=== PATIENT | female | born 1990 | race Caucasian/White ===

== ENCOUNTER → 2016-12-31 | Outpatient (CLI) | payer SELFPAY ==
[2017-01-05 12:39] LABS: QUANTIFERON TB ANTIGEN VALUE 0.13 IU/mL (.); QUANTIFERON TB NIL VALUE 0.08 IU/mL (.)
== END ==
LOC: OD 10:17
PROVIDERS: ATTEND Obstetrics & Gynecology
DX: R76.11 Nonspecific reaction to tuberculin skin test without active tuberculosis (principal)
CPT/HCPCS: 36415; 86480

== ENCOUNTER → 2017-03-16 | Outpatient (CLI) | payer SELFPAY | LOC: RAD 17:18 | PROVIDERS: ATTEND Obstetrics & Gynecology | DX: R82.2 Biliuria (principal); R10.11 Right upper quadrant pain; R10.13 Epigastric pain | CPT/HCPCS: 76705 ==

== ENCOUNTER → 2017-03-17 | Outpatient (CLI) | payer SELFPAY | LOC: RAD 11:47 | PROVIDERS: ATTEND Nurse Practitioner Primary Care | DX: R10.11 Right upper quadrant pain (principal); R10.13 Epigastric pain; R11.10 Vomiting, unspecified; R19.8 Other specified symptoms and signs involving the digestive system and abdomen | CPT/HCPCS: 74160 ==

== ENCOUNTER 2017-05-31 14:04 | Emergency (ER) | payer SELFPAY ==
[2017-05-31] MEDS ORDERED: KETOROLAC TROMETHAMINE INJ/PF 30 MG/1 ML SDV IV ONE (14:28)
[2017-05-31] MEDS ORDERED: OXYCODONE-ACETAMINOPHEN 5-325 MG TABLET PO ONE (14:28)
--- NOTE | 2017-05-31 14:29 | ER Document Report ---
ED Medical Screen (RME) - General Chief Complaint: Headache Stated Complaint: HEAD PAIN Time Seen by Provider: 05/31/17 14:27 Information source: Patient Notes: 27-year-old female with past medical history of migraines when she was . Her child is currently 6 years old. Patient states some intermittent headaches to the right side of her head for the last 3 weeks. She states some intermittent blurry vision. She denies any trauma, fevers, neck stiffness, weakness or numbness to the arms or legs. TRAVEL OUTSIDE OF THE [place] IN LAST 30 DAYS: No - Related Data Allergies/Adverse Reactions: codeine [Codeine] Allergy (Severe, Verified 05/31/17 14:07) Apnea ranitidine HCl [From Zantac] Allergy (Severe, Verified 05/31/17 14:07) sulfamethoxazole [From Septra] Allergy (Severe, Verified 05/31/17 14:07) trimethoprim [From Septra] Allergy (Severe, Verified 05/31/17 14:07) Past Medical History Renal/ Medical History: Denies: Hx Peritoneal Dialysis Psychiatric Medical History: Reports: Hx Anxiety Past Surgical History: Reports: Hx Section - x2, Hx Orthopedic Surgery - knee, ankle, foot - Immunizations Hx Diphtheria, Pertussis, Tetanus Vaccination: Yes Physical Exam - Vital signs Vitals: Temp Pulse Resp BP Pulse Ox 99.6 F 104 H 16 121/80 97 05/31/17 14:07 05/31/17 14:07 05/31/17 14:07 05/31/17 14:07 05/31/17 14:07 Course - Vital Signs Vital signs: Temp Pulse Resp BP Pulse Ox 99.6 F 104 H 16 121/80 97 05/31/17 14:07 05/31/17 14:07 05/31/17 14:07 05/31/17 14:07 05/31/17 14:07
--- NOTE | 2017-05-31 15:24 | RADIOLOGY REPORT (SQ) ---
EXAM DESCRIPTION: CT HEAD WITHOUT COMPLETED DATE/TIME: 05/31/2017 3:13 pm REASON FOR STUDY: pit; right sided intermittent headache COMPARISON: None. TECHNIQUE: Axial images acquired through the brain without intravenous contrast. Images reviewed wi th bone, brain and subdural windows. Images stored on PACS. All CT scanners at this facility use dose modulation, iterative reconstruction, and/or weight based d osing when appropriate to reduce radiation dose to as low as reasonably achievable (ALARA). [facility]: Dose Right [facility]: CareDose [facility]: Dose Right [facility]: Teradose 4D [facility]: [employer] RADIATION DOSE: Up-to-date CT equipment and radiation dose reduction techniques were employed. CTDIv ol: 64.6 mGy. DLP: 1034 mGy-cm. mGy. LIMITATIONS: None. FINDINGS: VENTRICLES: Normal size and contour. CEREBRUM: No masses. No hemorrhage. No midline shift. Normal alberts/white matter differentiation. N o evidence for acute infarction. CEREBELLUM: No masses. No hemorrhage. No alteration of density. No evidence for acute infarction. EXTRAAXIAL SPACES: No fluid collections. No masses. ORBITS AND GLOBE: No intra- or extraconal masses. Normal contour of globe without masses. CALVARIUM: No fracture. PARANASAL SINUSES: No fluid or mucosal thickening. SOFT TISSUES: No mass or hematoma. OTHER: No other significant finding. IMPRESSION: NORMAL BRAIN CT WITHOUT CONTRAST. TECHNICAL DOCUMENTATION: JOB ID: [id number] Quality ID # [id number]: Final reports with documentation of one or more dose reduction techniques (e.g., Au tomated exposure control, adjustment of the mA and/or kV according to patient size, use of iterative reconstruction technique) 2010 [employer]- All Rights Reserved
[2017-05-31] MEDS ORDERED: NORMAL SALINE 1000 ML 1,000 ML IV ONE (15:40)
[2017-05-31] MEDS ORDERED: PROCHLORPERAZINE EDISYLATE INJ 10 MG/2 ML VIAL IV ONE (15:40)
--- NOTE | 2017-05-31 15:40 | ER Document Report ---
ED Headache - General Chief Complaint: Headache Stated Complaint: HEAD PAIN Time Seen by Provider: 05/31/17 14:27 Mode of Arrival: Ambulatory Information source: Patient Notes: Patient is a 27-year-old female who presents to the ER today for headache 2 days. Patient does have a history of migraines. She does admit to light sensitivity, nausea with this migraine. She denies any weakness or numbness anywhere. She states The worst migraines that she has had Was when she was . TRAVEL OUTSIDE OF THE [place] IN LAST 30 DAYS: No - Related Data Allergies/Adverse Reactions: codeine [Codeine] Allergy (Severe, Verified 05/31/17 14:07) Apnea ranitidine HCl [From Zantac] Allergy (Severe, Verified 05/31/17 14:07) sulfamethoxazole [From Septra] Allergy (Severe, Verified 05/31/17 14:07) trimethoprim [From Septra] Allergy (Severe, Verified 05/31/17 14:07) Past Medical History - General Information source: Patient - Social History Smoking Status: Unknown if Ever Smoked Family History: Reviewed & Not Pertinent Patient has suicidal ideation: No Patient has homicidal ideation: No Renal/ Medical History: Denies: Hx Peritoneal Dialysis Psychiatric Medical History: Reports: Hx Anxiety Past Surgical History: Reports: Hx Section - x2, Hx Orthopedic Surgery - knee, ankle, foot - Immunizations Hx Diphtheria, Pertussis, Tetanus Vaccination: Yes Review of Systems - Review of Systems Constitutional: No symptoms reported EENT: No symptoms reported Cardiovascular: No symptoms reported Respiratory: No symptoms reported Gastrointestinal: No symptoms reported Genitourinary: No symptoms reported Female Genitourinary: No symptoms reported Musculoskeletal: No symptoms reported Skin: No symptoms reported Hematologic/Lymphatic: No symptoms reported Neurological/Psychological: See HPI Physical Exam - Vital signs Vitals: Temp Pulse Resp BP Pulse Ox 99.6 F 104 H 16 121/80 97 05/31/17 14:07 05/31/17 14:07 05/31/17 14:07 05/31/17 14:07 05/31/17 14:07 - Notes Notes: PHYSICAL EXAMINATION: GENERAL: Laying in a dark room with sunglasses on, obviously uncomfortable, but in no acute distress. HEAD: Atraumatic, normocephalic. EYES: light-sensitive, Pupils equal round and reactive to light, extraocular movements intact, sclera anicteric, conjunctiva are normal. ENT: ear canals without erythema or foreign body, TMs pearly ernst with good bony landmarks, nares patent, oropharynx clear without exudates. Moist mucous membranes. NECK: Normal range of motion, supple without lymphadenopathy LUNGS: CTAB and equal. No wheezes rales or rhonchi. HEART: Regular rate and rhythm without murmurs ABDOMEN: Soft, no tenderness. No guarding, no rebound BACK: no vertebral tenderness, normal ROM GI/: no CVA tenderness EXTREMITIES: Normal range of motion, no pitting edema. No cyanosis. NEUROLOGICAL: Cranial nerves grossly intact. Normal sensory/motor exams. PSYCH: Normal mood, normal affect. SKIN: Warm, Dry, normal turgor, no rashes or lesions noted Course - Re-evaluation Re-evalutation: 05/31/17 17:25 Patient feels better after Compazine, IV fluids, Toradol eating Pope[employer] chicken and would like to go home. - Vital Signs Vital signs: Temp Pulse Resp BP Pulse Ox 99.6 F 104 H 16 121/80 97 05/31/17 14:07 05/31/17 14:07 05/31/17 14:07 05/31/17 14:07 05/31/17 14:07 Discharge - Discharge Clinical Impression: Migraine Qualifiers: Migraine type: unspecified Status migrainosus presence: without status migrainosus Intractability: not intractable Qualified Code(s): G43.909 - Migraine, unspecified, not intractable, without status migrainosus Condition: Stable Disposition: HOME, SELF-CARE Instructions: Intravenous Compazine for Headaches ([facility]), Use of Diphenhydramine Additional Instructions: Return immediately for any new or worsening symptoms. Follow up with primary care provider, call tomorrow to make followup appointment. Prescriptions: Ibuprofen [Motrin 800 mg Tablet] 800 mg PO Q8H PRN #30 tab PRN Reason: Forms: Return to Work
[2017-05-31 17:52] VITALS: BP 101/59
== END 2017-05-31 17:45 | disposition home or self-care (01) ==
LOC: ER 14:04
DX: G43.909 Migraine, unspecified, not intractable, without status migrainosus (principal); H53.149 Visual discomfort, unspecified; R11.0 Nausea; Z88.5 Allergy status to narcotic agent; Z88.8 Allergy status to other drugs, medicaments and biological substances; Z88.1 Allergy status to other antibiotic agents
CPT/HCPCS: 99284; 96374; 96375; 81025; 70450; J1885; J0780; J7030

== ENCOUNTER → 2017-06-08 | Outpatient (CLI) | payer SELFPAY ==
--- NOTE | 2017-06-08 11:06 | RADIOLOGY REPORT (SQ) ---
EXAM DESCRIPTION: C SP 4 OR 5 VIEWS COMPLETED DATE/TIME: 06/08/2017 10:20 am REASON FOR STUDY: HEADACHE, CERVICAL PAIN R51 HEADACHE M54.2 CERVICALGIA COMPARISON: None. NUMBER OF VIEWS: Five views. TECHNIQUE: AP, lateral, obliques and odontoid radiographic images acquired of the cervical spine. LIMITATIONS: None. FINDINGS: MINERALIZATION: Normal. ALIGNMENT: Anatomic. VERTEBRAE: Vertebral bodies of normal height. DISCS: No significant osteophytes or sclerosis. Disc height maintained. FORAMINA: No osteophytes or foraminal narrowing. LATERAL AND POSTERIOR ELEMENTS: Facets, lateral masses and spinous processes without significant find ings. HARDWARE: None in the spine. SOFT TISSUES: No masses or calcifications. Lung apices clear. OTHER: No other significant finding. IMPRESSION: NO SIGNIFICANT RADIOGRAPHIC FINDING IN THE CERVICAL SPINE. TECHNICAL DOCUMENTATION: JOB ID: [id number] [employer]- All Rights Reserved
== END ==
LOC: OD 10:05
PROVIDERS: ATTEND Obstetrics & Gynecology
DX: R51 Headache (principal); M54.2 Cervicalgia
CPT/HCPCS: 72050

== ENCOUNTER 2018-02-10 18:28 | Emergency (ER) | payer SELFPAY ==
[2018-02-10] MEDS ORDERED: DIPH/PERTUSS(ACELL)/TETANUS VAC/PF 0.5 ML SYR (>=10YO) IM ONE (18:54)
[2018-02-10] MEDS ORDERED: LIDOCAINE 1% INJ-PF (10 MG/ML) 30 ML SDV INJ ONE (18:54)
--- NOTE | 2018-02-10 19:00 | ER Document Report ---
HPI - HPI Pain Level: 2 Notes: Patient is a 28-year-old female with no significant past medical history presents to the ED complaining of a laceration to her right wrist by accident prior to arrival. Patient states that she was using a sample box maker and was trying to cut open the straps when she caught her wrist. Patient states that she does have the bleeding under control. She still able to move her hands and fingers without difficulties. Patient states that she just has a burning sensation, but nothing else. She denies any IV drug use. Denies any suicidal or homicidal ideations/thoughts. No other concerns or complaints at this time. Denies any headache, fever, neck pain, URI, sore throat, chest pain, palpitations, syncope, cough, shortness of breath, wheeze, dyspnea, abdominal pain, nausea/vomiting/diarrhea, urinary retention, dysuria, hematuria, numbness/ tingling, muscle paralysis/weakness, or rash. - ROS Systems Reviewed and Negative: Yes All other systems reviewed and negative - REPRODUCTIVE Reproductive: DENIES: : Past Medical History - Social History Smoking Status: Unknown if Ever Smoked Family History: Reviewed & Not Pertinent Neurological Medical History: Reports: Hx Migraine Renal/ Medical History: Denies: Hx Peritoneal Dialysis Psychiatric Medical History: Reports: Hx Anxiety Past Surgical History: Reports: Hx Section - x2, Hx Orthopedic Surgery - knee, ankle, foot - Immunizations Hx Diphtheria, Pertussis, Tetanus Vaccination: Yes Vertical Provider Document - CONSTITUTIONAL Agree With Documented VS: Yes Notes: PHYSICAL EXAMINATION: GENERAL: Well-appearing, well-nourished and in no acute distress. A&Ox4. LUNGS: Breath sounds clear to auscultation bilaterally and equal. No wheezes rales or rhonchi. HEART: Regular rate and rhythm without murmurs, rubs, gallops. Musculoskeletal: Rt wrist/hand: FROM to passive/active. Strength 5+/5. N/V intact distal. No bony tenderness. Extremities: No cyanosis, clubbing, or edema b/l. Peripheral pulses 2+. Capillary refill less than 3 seconds. NEUROLOGICAL: Cranial nerves grossly intact. Normal speech, normal gait. Normal sensory, motor exams PSYCH: Normal mood, normal affect. SKIN:Rt anterior wrist: superficial, clean, linear, 2cm laceration with 0.5cm width. No active bleeding. - INFECTION CONTROL TRAVEL OUTSIDE OF THE [place] IN LAST 30 DAYS: No Course - Re-evaluation Re-evalutation: 02/10/18 19:37 Patient is an afebrile, well-hydrated, 28-year-old female who presents to the ED with a right wrist laceration. Vitals are acceptable. PE is otherwise unremarkable for any neurovascular compromise, obvious tendon/ligament rupture, obvious fracture/dislocation. Wound was thoroughly irrigated and cleansed. Wound edges were approximated appropriately utilizing 4 simple interrupted sutures. Wound dressing was placed and wound instructions reviewed. Tdap was given today. Recommend conservative measures otherwise for symptoms. Recheck with your PCM in 2-3 days. Return to the ED with any worsening/concerning symptoms otherwise as reviewed discharge. Sutures will need removed in about 10 days. Patient is in agreement. - Vital Signs Vital signs: Temp Pulse Resp BP Pulse Ox 98.6 F 106 H 137/81 H 98 02/10/18 18:35 02/10/18 18:35 02/10/18 18:35 02/10/18 18:35 Procedures - Laceration/Wound Repair Right Wrist Time completed: 19:35 Wound length (cm): 2 Wound's Depth, Shape: Superficial, Linear Laceration pre-procedure: Sterile PPE donned, Sterile drapes applied, Other - chlorhexadine Anesthetic type: 1% Lidocaine Volume Anesthetic (mLs): 4 Wound explored: Clean, No foreign body removed Irrigated w/ Saline (mLs): 80 Wound Debrided: none Wound Repaired With: Sutures Suture Size/Type: 4:0, Nylon Number of Sutures: 4 Layer Closure?: No Post-procedure wound care: Sterile dressing applied Post-procedure NV exam normal: Yes Complications: No Discharge - Discharge Clinical Impression: Laceration of wrist Qualifiers: Encounter type: initial encounter Laterality: right Qualified Code(s): S61.511A - Laceration without foreign body of right wrist, initial encounter Condition: Stable Disposition: HOME, SELF-CARE Instructions: Antibiotic Ointment Protection ([facility]), Laceration Care ([facility]), Soap Cleansing ([facility]), Tetanus Immunization Given ([facility]) Additional Instructions: Do not shower or bathe for 24 hours. After 24 hours you may shower but no submersion of the wound under water. Keep the original dressing on the wound for 24 hours unless the drainage soaks through. Change the dressing daily thereafter and keep the knots of the suture material clean from any dried discharge. You may leave the wound open to the air once there is no more discharge. Return to the ED and/or your PCM in 2-3 days for a recheck. Monitor for any signs of worsening pain or redness, purulent drainage, streaks, and/or fever. Return to the ED if noticing any of the above symptoms or as needed. Your sutures will need to be removed in 10 days. Forms: Elevated Blood Pressure Referrals: [facility] [Provider Group] - Follow up as needed [facility] [Provider Group] - Follow up as needed
[2018-02-10 19:57] VITALS: BP 136/80
== END 2018-02-10 19:55 | disposition home or self-care (01) ==
LOC: ER 18:28
PROC: 0HQDXZZ Repair Right Lower Arm Skin, External Approach (ICD-10-PCS; principal; 2018-02-10)
DX: S61.511A Laceration without foreign body of right wrist, initial encounter (principal); W26.0XXA Contact with knife, initial encounter
CPT/HCPCS: 99282; 90471; 90715; 12001; J3490

== ENCOUNTER 2018-05-01 17:08 | Emergency (ER) | payer SELFPAY ==
[2018-05-01 17:29] VITALS: BP 125/78
--- NOTE | 2018-05-01 17:36 | ER Document Report ---
HPI - HPI Pain Level: 3 Notes: Patient is a 28-year-old female who presents to the ED complaining of nasal congestion/discharge, dry nonproductive cough, fever, body ache 3 days. Patient states that she is still eating and drinking without difficulties, but does have a decreased p.o. intake. She is still urinating normally having normal bowel movements. Patient has been using some [id number] meds for symptoms. She denies any significant past medical history including cardiopulmonary history and immunocompromised conditions. Patient denies IV drug use. + smoker. Denies any headache, neck pain, sore throat, chest pain, palpitations, syncope, shortness of breath, wheeze, dyspnea, abdominal pain, nausea/vomiting/diarrhea, urinary retention, dysuria, hematuria, or rash. - ROS Systems Reviewed and Negative: Yes All other systems reviewed and negative - REPRODUCTIVE Reproductive: DENIES: : Past Medical History - Social History Smoking Status: Current Every Day Smoker Family History: Reviewed & Not Pertinent - Past Medical History Cardiac Medical History: Reports: Hx Hypertension Neurological Medical History: Reports: Hx Migraine Renal/ Medical History: Denies: Hx Peritoneal Dialysis Psychiatric Medical History: Reports: Hx Anxiety, Hx Depression Past Surgical History: Reports: Hx Section - x2, Hx Orthopedic Surgery - knee, ankle, foot - Immunizations Hx Diphtheria, Pertussis, Tetanus Vaccination: Yes Vertical Provider Document - CONSTITUTIONAL Agree With Documented VS: Yes Notes: PHYSICAL EXAMINATION: GENERAL: Well-appearing, well-nourished and in no acute distress. A&Ox4. Answers questions appropriately. Moves comfortably w/o notable distress HEAD: Atraumatic, normocephalic. EYES: Pupils equal round and reactive to light, extraocular movements intact, sclera anicteric, conjunctiva are normal. ENT: EAC clear b/l. TM's intact b/l without erythema, fluid, or perforation. Nares patent and with clear discharge. oropharynx no erythema without exudates. No tonsilar hypertrophy without erythema or exudate. No palatine shift. Uvula midline. No tongue protrusion. No drooling, hoarseness, or airway compromise. Moist mucous membranes. No sinus tenderness. NECK: Normal range of motion, supple without lymphadenopathy. No rigidity/ meningismus. LUNGS: Breath sounds clear to auscultation bilaterally and equal. No wheezes rales or rhonchi. No retractions HEART: Regular rate and rhythm without murmurs, rubs, gallops. ABDOMEN: Soft, nontender, nondistended abdomen. No guarding, no rebound. No masses appreciated. Normal bowel sounds present. No CVA tenderness bilaterally. No hepatosplenomegaly. NEUROLOGICAL: Normal speech, normal gait. Normal sensory, motor exams PSYCH: Normal mood, normal affect. SKIN: Warm, Dry, normal turgor, no rashes or lesions noted. - INFECTION CONTROL TRAVEL OUTSIDE OF THE [place] IN LAST 30 DAYS: No Course - Re-evaluation Re-evalutation: 05/01/18 17:33 Patient is an afebrile, well-hydrated, 28-year-old female who presents to the ED with acute URI, suspect viral. Vitals are stable. PE is otherwise unremarkable. No labs or imaging warranted at this time based on H&P. Patient has no significant cardiopulmonary or immunocompromised medical conditions. Pt is non-toxic appearing. Patient's lungs are clear to auscultation bilaterally without tachycardia, hypoxia, or tachypnea. Patient is tolerating p.o. without any difficulties. Low suspicion for any meningitis, sepsis, peritonsillar/ pharyngeal abscess, respiratory compromise, severe dehydration, or other emergent systemic condition at this time. Patient is aware this condition can change from initial presentation and she needs to monitor symptoms closely. Rx for tessalon. Conservative measures otherwise for symptoms. Recheck with your PCM in 3-5 days. Return to the ED with any worsening/concerning symptoms otherwise as reviewed in discharge. Patient is in agreement. - Vital Signs Vital signs: Temp Pulse Resp BP Pulse Ox 99.7 F 96 16 125/78 97 05/01/18 17:27 05/01/18 17:27 05/01/18 17:27 05/01/18 17:27 05/01/18 17:27 Discharge - Discharge Clinical Impression: Acute URI Condition: Stable Disposition: HOME, SELF-CARE Instructions: Upper Respiratory Illness ([facility]) Additional Instructions: Maintain adequate fluid intake Take meds as directed tylenol/ibuprofen as needed over the counter cold medication as needed for symptoms Humidified air may help Wash your hands regularly Wear a mask when coughing F/u: with your PCM in 3-5 days for a recheck Return to the ED with any fever, worsening pain, chest pain, palpitations, syncope, worsening KONG, neck pain/stiffness, shortness of breath, wheezing, drooling, trouble swallowing/breathing, abdominal pain, n/v/d, rash, or worsening/concerning symptoms otherwise. Prescriptions: Benzonatate [Tessalon Perle 100 mg Capsule] 100 mg PO Q8HP PRN #15 cap PRN Reason: Forms: Smoking Cessation Education Referrals: SAMUEL MORENO V[employer] OPERATOR [Primary Care Provider] - Follow up in 3-5 days
== END 2018-05-01 17:45 | disposition home or self-care (01) ==
LOC: ER 17:08
DX: J06.9 Acute upper respiratory infection, unspecified (principal); R09.81 Nasal congestion; R05 Cough; R50.9 Fever, unspecified; R52 Pain, unspecified; I10 Essential (primary) hypertension; F17.200 Nicotine dependence, unspecified, uncomplicated
CPT/HCPCS: 99283

== ENCOUNTER 2019-05-14 14:01 | Emergency (ER) | payer SELFPAY ==
[2019-05-14] MEDS ORDERED: LIDOCAINE 1% INJ-PF (10 MG/ML) 30 ML SDV INJ ONE (14:56)
--- NOTE | 2019-05-14 14:58 | ER Document Report ---
HPI - HPI Patient complains to provider of: hand laceration Time Seen by Provider: 05/14/19 14:54 Onset: Just prior to arrival Onset/Duration: Persistent Quality of pain: Other - sore Pain Level: 2 Context: Patient presents emergency department with laceration to right dorsal hand. 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 She tried to apply butterfly bandage and duct tape but it did not work. Patient is left-hand dominant reports that she received a tetanus last year. 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 Lives with: Family Family History: Reviewed & Not Pertinent Patient has suicidal ideation: No Patient has homicidal ideation: No - Past Medical History Cardiac Medical History: Reports: Hx Hypertension Neurological Medical History: Reports: Hx Migraine Renal/ Medical History: Denies: Hx Peritoneal Dialysis Psychiatric Medical History: Reports: Hx Anxiety, Hx Depression Past Surgical History: Reports: Hx Section - x2, Hx Orthopedic Surgery - knee, ankle, foot - Immunizations Hx Diphtheria, Pertussis, Tetanus Vaccination: Yes Vertical Provider Document - CONSTITUTIONAL Agree With Documented VS: Yes Exam Limitations: No Limitations General Appearance: WD/WN, No Apparent Distress - INFECTION CONTROL TRAVEL OUTSIDE OF THE [place] IN LAST 30 DAYS: No - HEENT HEENT: Atraumatic, Normocephalic - NECK Neck: Supple - RESPIRATORY Respiratory: No Respiratory Distress - CARDIOVASCULAR Cardiovascular: Regular Rate - MUSCULOSKELETAL/EXTREMETIES Musculoskeletal/Extremeties: MAEW, FROM, Tender - NEURO Level of Consciousness: Awake, Alert, Appropriate Motor/Sensory: No Motor Deficit - DERM Integumentary: Warm, Dry, Laceration Adult Front & Back Diagram: 1 - Small 1 cm laceration noted to dorsal right hand. No active bleeding, closed with 2 sutures. Site is well approximated now Course - Vital Signs Vital signs: Temp Pulse Resp BP Pulse Ox 98.7 F 83 16 115/63 98 05/14/19 14:24 05/14/19 14:24 05/14/19 14:24 05/14/19 14:24 05/14/19 14:24 Procedures - Laceration/Wound Repair Left Hand Wound length (cm): 1 Wound's Depth, Shape: Superficial Anesthetic type: 1% Lidocaine Volume Anesthetic (mLs): 2 Wound explored: Clean Suture Size/Type: 4:0, Prolene Number of Sutures: 2 Layer Closure?: No Post-procedure NV exam normal: Yes Complications: No Hands back picture: 1 - 1 cm laceration closed with 2 sutures Discharge - Discharge Clinical Impression: Laceration of right hand Qualifiers: Encounter type: initial encounter Foreign body presence: without foreign body Qualified Code(s): S61.411A - Laceration without foreign body of right hand, initial encounter Condition: Stable Disposition: HOME, SELF-CARE Instructions: Laceration Care ([facility]), Soap Cleansing ([facility]) Additional Instructions: *You have been treated for laceration *Monitor the site for signs of infection such as pain,redness, swelling, warmth *keep your hand clean *Follow up here for suture removal in 10 days *Return to ED for signs of infection, worsening condition, changes, needs Referrals: SAMUEL MORENO NP [Primary Care Provider] - Follow up in 1 week
[2019-05-14 15:56] VITALS: BP 118/61
== END 2019-05-14 15:55 | disposition home or self-care (01) ==
LOC: ER 14:01
DX: S61.411A Laceration without foreign body of right hand, initial encounter (principal); W27.8XXA Contact with other nonpowered hand tool, initial encounter; I10 Essential (primary) hypertension
CPT/HCPCS: 99282; 12001; J3490

== ENCOUNTER 2020-08-21 13:20 | Emergency (ER) | payer SELFPAY ==
[2020-08-21] MEDS ORDERED: NORMAL SALINE 1000 ML 1,000 ML IV ONE (13:34)
[2020-08-21] MEDS ORDERED: ONDANSETRON 4 MG TAB.RAPDIS PO ONE (13:34)
--- NOTE | 2020-08-21 13:35 | ER Document Report ---
ED Medical Screen (RME) - General Chief Complaint: Nausea/Vomiting Stated Complaint: NAUSEA,VOMITING,SHAKY Time Seen by Provider: 08/21/20 13:28 Primary Care Provider: SAMUEL MORENO NP [Primary Care Provider] - Follow up as needed Mode of Arrival: Ambulatory Information source: Patient Notes: 30-year-old female presented to ED for complaint of nausea and vomiting shaking palpitations at work. She states she went to work at 1030 x 1230 she started getting sick nausea and vomiting. She states she was very overheated at work and they sent her home. She came here to the emergency room. She does have tachycardia palpitations nausea and vomiting. She states she does smoke a pack a day does not drink or do any kind of illicit drugs. I have ordered blood urin e EKG and IV fluids as well as Zofran. She will be seen by another provider. I have greeted and performed a rapid initial assessment of this patient. A comprehensive ED assessment and evaluation of the patient, analysis of test results and completion of medical decision making process will be conducted by an additional ED providers. TRAVEL OUTSIDE OF THE [place] IN LAST 30 DAYS: No - Related Data Allergies/Adverse Reactions: codeine [Codeine] Allergy (Severe, Verified 05/14/19 14:14) Apnea ranitidine HCl [From Zantac] Allergy (Severe, Verified 05/14/19 14:14) sulfamethoxazole [From Septra] Allergy (Severe, Verified 05/14/19 14:14) trimethoprim [From Septra] Allergy (Severe, Verified 05/14/19 14:14) Past Medical History - Past Medical History Cardiac Medical History: Reports: Hx Hypertension Neurological Medical History: Reports: Hx Migraine Renal/ Medical History: Denies: Hx Peritoneal Dialysis Psychiatric Medical History: Reports: Hx Anxiety, Hx Depression Past Surgical History: Reports: Hx Section - x2, Hx Orthopedic Surgery - knee, ankle, foot - Immunizations Hx Diphtheria, Pertussis, Tetanus Vaccination: Yes Physical Exam - Vital signs Vitals: Temp Pulse Resp BP Pulse Ox 98.6 F 133 H 16 138/80 H 96 08/21/20 13:28 08/21/20 13:28 08/21/20 13:28 08/21/20 13:28 08/21/20 13:28 Course - Vital Signs Vital signs: Temp Pulse Resp BP Pulse Ox 98.6 F 133 H 16 138/80 H 96 08/21/20 13:28 08/21/20 13:28 08/21/20 13:28 08/21/20 13:28 08/21/20 13:28 Doctor's Discharge - Discharge Referrals: SAMUEL MORENO NP [Primary Care Provider] - Follow up as needed
[2020-08-21 14:26] LABS: ABSOLUTE BASOPHILS # (AUTO) 0.1 10^3/uL (0.0-0.2); ABSOLUTE EOSINOPHILS # (AUTO) 0.4 10^3/uL (0.0-0.6); ABSOLUTE LYMPHOCYTES (AUTO) 2.9 10^3/uL (0.5-4.7); ABSOLUTE MONOCYTES (AUTO) 0.5 10^3/uL (0.1-1.4); ABSOLUTE NEUT (AUTO) 6.1 10^3/uL (1.7-8.2); EOSINOPHILS % (AUTO) 4.1 % (0-6); HEMATOCRIT 43.9 % (36.0-47.0); HEMOGLOBIN 15.4 g/dL (12.0-15.5); LYMPHOCYTES % (AUTO) 28.7 % (13-45); MEAN CORPUSCULAR HEMOGLOBIN 31.2 pg (27.0-33.4); MEAN CORPUSCULAR HGB CONC 35.2 g/dL (32.0-36.0); MEAN CORPUSCULAR VOLUME 89 fl (80-97); MONOCYTES % (AUTO) 5.1 % (3-13); PLATELET COUNT 264 10^3/uL (150-450); RED BLOOD COUNT 4.95 10^6/uL (3.72-5.28); RED CELL DISTRIBUTION WIDTH 14.2 % (11.5-14.0); SEGMENTED NEUTROPHILS % (AUTO) 61.1 % (42-78); TOTAL CELLS COUNTED % (AUTO) 100 %; WHITE BLOOD COUNT 9.9 10^3/uL (4.0-10.5)
--- NOTE | 2020-08-21 14:36 | RADIOLOGY REPORT (SQ) ---
EXAM DESCRIPTION: CHEST SINGLE VIEW IMAGES COMPLETED DATE/TIME: 08/21/2020 2:23 pm REASON FOR STUDY: palpitations COMPARISON: 09/27/2013. EXAM PARAMETERS: NUMBER OF VIEWS: One view. TECHNIQUE: Single frontal radiographic view of the chest acquired. RADIATION DOSE: NA LIMITATIONS: None. FINDINGS: LUNGS AND PLEURA: No opacities, masses or pneumothorax. No pleural effusion. MEDIASTINUM AND HILAR STRUCTURES: No masses. Contour normal. HEART AND VASCULAR STRUCTURES: Heart normal in size. Normal vasculature. BONES: No acute findings. HARDWARE: None in the chest. OTHER: No other significant finding. IMPRESSION: NO ACUTE RADIOGRAPHIC FINDING IN THE CHEST. TECHNICAL DOCUMENTATION: JOB ID: [id number] 2010 [employer]- All Rights Reserved Reading location - IP/workstation name: [email or web address]
[2020-08-21 14:43] LABS: ALBUMIN 4.4 g/dL (3.5-5.0); ALKALINE PHOSPHATASE 106 U/L (38-126); ANION GAP 10 (5-19); ASPARTATE AMINO TRANSFERASE 49 U/L (14-36); BILIRUBIN,DIRECT 0.3 mg/dL (0.0-0.4); BILIRUBIN,TOTAL 1.2 mg/dL (0.2-1.3); BLOOD UREA NITROGEN 10 mg/dL (7-20); CALCIUM 9.9 mg/dL (8.4-10.2); CARBON DIOXIDE 23 mmol/L (22-30); CHLORIDE 105 mmol/L (98-107); GLUCOSE 87 mg/dL (75-110); POTASSIUM 4.1 mmol/L (3.6-5.0); TOTAL PROTEIN 7.4 g/dL (6.3-8.2)
--- NOTE | 2020-08-21 14:45 | ER Document Report ---
ED General - General Chief Complaint: Palpitations Stated Complaint: NAUSEA,VOMITING,SHAKY Time Seen by Provider: 08/21/20 13:28 Primary Care Provider: SAMUEL MORENO NP [Primary Care Provider] - Follow up as needed Mode of Arrival: Ambulatory Notes: Patient is a 30-year-old white female with no reported past medical history who presents to the emergency department with a chief complaint of "heat exhaustion". The patient reports that she just started a new job working in a very hot environment on [employer]. She states that she wears full covered clothing and a mask while at work. She states today while working she began to feel as if she was overheating. States that her skin became very warm and then she felt very flushed. She states that she felt like she was not exchanging air well under her mask and started to feel nauseous. She went outside to get some fresh air took off the mask and vomited a couple times. She states she felt as if she was dehydrated and overheated which prompted her visit to the emergency department. She denies any chest pain or palpitations. Denies any shortness of breath. Denies any lower extremity pain or swelling. No abdominal pain. No diarrhea. No fever or recent travel or known sick contacts. She does admit to a history of anxiety and attributes this to some of her symptoms as well. TRAVEL OUTSIDE OF THE [place] IN LAST 30 DAYS: No - Related Data Allergies/Adverse Reactions: codeine [Codeine] Allergy (Severe, Verified 08/21/20 14:10) Apnea ranitidine HCl [From Zantac] Allergy (Severe, Verified 08/21/20 14:10) sulfamethoxazole [From Septra] Allergy (Severe, Verified 08/21/20 14:10) trimethoprim [From Septra] Allergy (Severe, Verified 08/21/20 14:10) Home Medications: Lexapro, Abilify, Doxapin, Ambien, Clonazepam Past Medical History - General Information source: Patient - Social History Smoking Status: Current Every Day Smoker Family History: Reviewed & Not Pertinent - Past Medical History Cardiac Medical History: Reports: Hx Hypertension Neurological Medical History: Reports: Hx Migraine Renal/ Medical History: Denies: Hx Peritoneal Dialysis Psychiatric Medical History: Reports: Hx Anxiety, Hx Depression Past Surgical History: Reports: Hx Section - x2, Hx Orthopedic Surgery - knee, ankle, foot - Immunizations Hx Diphtheria, Pertussis, Tetanus Vaccination: Yes Review of Systems - Review of Systems Constitutional: denies: Fever EENT: denies: Eye pain Cardiovascular: denies: Dyspnea Respiratory: denies: Cough Gastrointestinal: denies: Constipation Genitourinary: denies: Burning Female Genitourinary: denies: Vaginal discharge Musculoskeletal: denies: Deformity Skin: denies: Change in color Hematologic/Lymphatic: denies: Easy bruising Neurological/Psychological: denies: Gait changes Physical Exam - Vital signs Vitals: Temp Pulse Resp BP Pulse Ox 98.6 F 133 H 16 138/80 H 96 08/21/20 13:28 08/21/20 13:28 08/21/20 13:28 08/21/20 13:28 08/21/20 13:28 - General General appearance: Appears well, Alert In distress: None - HEENT Head: Normocephalic, Atraumatic Eyes: Normal Conjunctiva: Normal Extraocular movements intact: Yes Eyelashes: Normal Pupils: PERRL Ears: Normal External canal: Normal Tympanic membrane: Normal Nasal: Normal Mouth/Lips: Normal Mucous membranes: Dry Pharynx: Normal Neck: Normal, Supple - Respiratory Respiratory status: No respiratory distress Chest status: Nontender Breath sounds: Normal Chest palpation: Normal - Cardiovascular Rhythm: Regular Heart sounds: Normal auscultation Murmur: No - Abdominal Inspection: Normal Distension: No distension Bowel sounds: Normal Tenderness: Nontender Organomegaly: No organomegaly - Extremities General upper extremity: Normal inspection, Nontender, Normal color, Normal ROM, Normal temperature General lower extremity: Normal inspection, Nontender, Normal color, Normal ROM, Normal temperature, Normal weight bearing. No: Mars's sign - Neurological Neuro grossly intact: Yes Cognition: Normal Orientation: AAOx4 [place] Coma Scale Eye Opening: Spontaneous [place] Coma Scale Verbal: Oriented [place] Coma Scale Motor: Obeys Commands [place] Coma Scale Total: 15 Speech: Normal Motor strength normal: LUE, RUE, LLE, RLE Sensory: Normal - Psychological Associated symptoms: Normal affect, Normal mood - Skin Skin Temperature: Warm Skin Moisture: Dry Skin Color: Normal Course - Re-evaluation Re-evalutation: 08/21/20 14:43 Upon my evaluation patient received Zofran and is about 500 mL into a 1000 mL bolus of normal saline. She reports that she feels significantly better now that she is in an air conditioned environment receiving fluids and antinausea medications from triage. She reports no further symptoms at this time. Her vitals have significantly improved. Heart rate in the 80s, 86 noted last during my evaluation. Pressure in the 130s over 80s. She has fair to good turgor. Dry mucous membranes of the mouth. Exam is otherwise largely unremarkable. Pending laboratory studies and completion of fluids we will continue to monitor and reevaluate. 08/21/20 15:34 EKG: Sinus tachycardia at 103 bpm. Normal intervals. No STEMI. Interpreted by myself in conjunction with ED attending. 08/21/20 17:35 Reevaluation patient at this time, 1735: She looks and reports she feels much better. States that she is currently asymptomatic. Tolerating p.o. intake well. No more nausea. States that she is eager for discharge. She is stable and appropriate for discharge and outpatient follow-up. Counseled her at length regarding importance of rest and hydration. She will be given a work note as requested. I advised that she return here or any ER immediately with any new, persistent or worsening symptoms. Recommended follow-up in 2 to 3 days for reevaluation. She verbalized understood and agreed. - Vital Signs Vital signs: Temp Pulse Resp BP Pulse Ox 98.6 F 133 H 24 H 134/63 H 96 08/21/20 13:28 08/21/20 13:28 08/21/20 15:01 08/21/20 15:01 08/21/20 15:01 - Laboratory Result Diagrams: 08/21/20 13:58 08/21/20 13:58 Laboratory results interpreted by me: 08/21/20 08/21/20 08/21/20 13:58 13:58 16:35 RDW 14.2 H AST 49 H ALT 51 H Urine Glucose (UA) 50 H Urine Ketones TRACE H Urine Blood SMALL H Discharge - Discharge Clinical Impression: Dehydration, Near syncope Heat effects of Qualifiers: Encounter type: initial encounter Qualified Code(s): T67.9XXA - Effect of heat and light, unspecified, initial encounter Condition: Stable Disposition: HOME, SELF-CARE Instructions: Dehydration ([facility]), Heat Exhaustion ([facility]) Additional Instructions: Follow-up with your regular doctor in 2 to 3 days for reevaluation. Return here or any ER immediately with any new, persistent or worsening symptoms. Forms: Return to Work Referrals: SAMUEL MORENO NP [Primary Care Provider] - Follow up as needed
[2020-08-21 17:13] LABS: APPEARANCE,URINE CLEAR; BILIRUBIN,URINE NEGATIVE (NEGATIVE); COLOR,URINE YELLOW; GLUCOSE, URINE 50 mg/dL (NEGATIVE); KETONES,URINE TRACE mg/dL (NEGATIVE); LEUKOCYTE ESTERASE,URINE NEGATIVE (NEGATIVE); NITRITE,URINE NEGATIVE (NEGATIVE); PROTEIN,URINE NEGATIVE (NEGATIVE); URINE SPECIFIC GRAVITY 1.008; UROBILINOGEN,URINE NEGATIVE mg/dL (<2.0)
[2020-08-21 17:44] VITALS: BP 125/76
--- NOTE | 2020-08-21 19:22 | EKG REPORT ---
SEVERITY:- OTHERWISE NORMAL ECG - SINUS TACHYCARDIA : Confirmed by: Cecy Ferraro MD 21-Aug-2020 19:21:20
== END 2020-08-21 17:45 | disposition home or self-care (01) ==
LOC: ER 13:20
DX: X30.XXXA Exposure to excessive natural heat, initial encounter (principal); E86.0 Dehydration; R55 Syncope and collapse; R11.2 Nausea with vomiting, unspecified; R00.2 Palpitations; Y92.13 Military base as the place of occurrence of the external cause; Y99.0 Civilian activity done for income or pay; F17.200 Nicotine dependence, unspecified, uncomplicated; F41.9 Anxiety disorder, unspecified; F32.9 Major depressive disorder, single episode, unspecified; Z79.899 Other long term (current) drug therapy; Z88.6 Allergy status to analgesic agent; Z88.5 Allergy status to narcotic agent; Z88.8 Allergy status to other drugs, medicaments and biological substances; Z88.1 Allergy status to other antibiotic agents
CPT/HCPCS: 93005; 99285; 96360; 36415; 84702; 83690; 84443; 85025; 80053; 81001; 71045; 93010; S0119; J7030

== ENCOUNTER 2020-10-06 10:58 | Emergency (ER) | payer SELFPAY ==
--- NOTE | 2020-10-06 11:31 | ER Document Report ---
ED Medical Screen (RME) - General Chief Complaint: Nausea/Vomiting Stated Complaint: VOMITING Time Seen by Provider: 10/06/20 11:25 Primary Care Provider: SAMUEL MORENO NP [Primary Care Provider] - Follow up as needed Mode of Arrival: Ambulatory Information source: Patient Notes: Patient is a 30-year-old female comes emergency complaining of abdominal pain or vomiting. Patient states that started this morning she has vomited approximately 4 times. The first couple times she vomited she threw up her coffee and has been nothing of bile since then. She states her pain and discomfort is her mid epigastric area. She has had only 2 C-sections for surgery in the abdomen in the past. She has no past medical history but does have a slight psych history for depression. She does state that her daughter just got over having a gastroenteritis presentation. Patient is denied any diarrhea with this at all. Physical examination: Patient is a well-nourished well-developed obese 30-year-old female no apparent distress on examination but does appear somewhat uncomfortable. Cardiac: Regular rate and rhythm without any murmurs. Lungs: Bilateral breath sounds increased throughout no rhonchi rales or wheezes auscultated. Abdomen: In a sitting position very difficult to ascertain patient's exact pain and discomfort although does appear to be midepigastric. There is no tympany noted on percussion. Given that this is midepigastric and patient is in that realm of possibility of gallbladder disease I am not going to order an ultrasound at this time until she get further evaluation in the back to decide what ultrasound is the best diagnostic tool needed at this time rather than CT. Feel that labs will guide the direction of which way to go with this. I have greeted and performed a rapid initial assessment of this patient. A comprehensive ED assessment and evaluation of the patient, analysis of test results and completion of the medical decision making process will be conducted by additional ED providers. Dictation of this chart was performed using voice recognition software; therefore, there may be some unintended grammatical errors. TRAVEL OUTSIDE OF THE [place] IN LAST 30 DAYS: No - Related Data Allergies/Adverse Reactions: codeine [Codeine] Allergy (Severe, Verified 08/21/20 14:10) Apnea ranitidine HCl [From Zantac] Allergy (Severe, Verified 08/21/20 14:10) sulfamethoxazole [From Septra] Allergy (Severe, Verified 08/21/20 14:10) trimethoprim [From ] Allergy (Severe, Verified 08/21/20 14:10) Past Medical History - Past Medical History Cardiac Medical History: Reports: Hx Hypertension Neurological Medical History: Reports: Hx Migraine Renal/ Medical History: Denies: Hx Peritoneal Dialysis Psychiatric Medical History: Reports: Hx Anxiety, Hx Depression Past Surgical History: Reports: Hx Section - x2, Hx Orthopedic Surgery - knee, ankle, foot - Immunizations Hx Diphtheria, Pertussis, Tetanus Vaccination: Yes Physical Exam - Vital signs Vitals: Temp Pulse Resp BP Pulse Ox 98.1 F 99 18 144/86 H 97 10/06/20 11:04 10/06/20 11:04 10/06/20 11:04 10/06/20 11:04 10/06/20 11:04 Course - Vital Signs Vital signs: Temp Pulse Resp BP Pulse Ox 98.1 F 99 18 144/86 H 97 10/06/20 11:04 10/06/20 11:04 10/06/20 11:04 10/06/20 11:04 10/06/20 11:04 Doctor's Discharge - Discharge Referrals: SAMUEL MORENO, [employer] [Primary Care Provider] - Follow up as needed
[2020-10-06] MEDS ORDERED: NORMAL SALINE 1000 ML 1,000 ML IV ONE (12:37)
[2020-10-06] MEDS ORDERED: ONDANSETRON HCL INJ/PF 4 MG/2 ML SDV IV ONE (12:37)
[2020-10-06 12:38] LABS: ABSOLUTE BASOPHILS # (AUTO) 0.1 10^3/uL (0.0-0.2); ABSOLUTE EOSINOPHILS # (AUTO) 0.4 10^3/uL (0.0-0.6); ABSOLUTE LYMPHOCYTES (AUTO) 2.8 10^3/uL (0.5-4.7); ABSOLUTE MONOCYTES (AUTO) 0.6 10^3/uL (0.1-1.4); BASOPHILS % (AUTO) 0.7 % (0-2); EOSINOPHILS % (AUTO) 4.2 % (0-6); HEMATOCRIT 47.4 % (36.0-47.0); HEMOGLOBIN 16.2 g/dL (12.0-15.5); LYMPHOCYTES % (AUTO) 28.1 % (13-45); MEAN CORPUSCULAR HEMOGLOBIN 30.9 pg (27.0-33.4); MEAN CORPUSCULAR HGB CONC 34.1 g/dL (32.0-36.0); MEAN CORPUSCULAR VOLUME 91 fl (80-97); MONOCYTES % (AUTO) 6.5 % (3-13); PLATELET COUNT 279 10^3/uL (150-450); RED BLOOD COUNT 5.23 10^6/uL (3.72-5.28); RED CELL DISTRIBUTION WIDTH 14.9 % (11.5-14.0); SEGMENTED NEUTROPHILS % (AUTO) 60.5 % (42-78); TOTAL CELLS COUNTED % (AUTO) 100 %; WHITE BLOOD COUNT 9.8 10^3/uL (4.0-10.5)
[2020-10-06 12:54] LABS: ALBUMIN 4.6 g/dL (3.5-5.0); ALKALINE PHOSPHATASE 97 U/L (38-126); ANION GAP 9 (5-19); ASPARTATE AMINO TRANSFERASE 31 U/L (14-36); BILIRUBIN,DIRECT 0.1 mg/dL (0.0-0.4); BILIRUBIN,TOTAL 0.8 mg/dL (0.2-1.3); BLOOD UREA NITROGEN 12 mg/dL (7-20); CALCIUM 10.1 mg/dL (8.4-10.2); CARBON DIOXIDE 24 mmol/L (22-30); CHLORIDE 107 mmol/L (98-107); GLUCOSE 89 mg/dL (75-110); POTASSIUM 4.2 mmol/L (3.6-5.0); TOTAL PROTEIN 7.7 g/dL (6.3-8.2)
[2020-10-06] MEDS ORDERED: KETOROLAC TROMETHAMINE INJ/PF 30 MG/1 ML SDV IV ONE (13:12)
--- NOTE | 2020-10-06 13:13 | ER Document Report ---
ED GI/ - General Chief Complaint: Nausea/Vomiting Stated Complaint: VOMITING Time Seen by Provider: 10/06/20 11:25 Primary Care Provider: SAMUEL MORENO NP [Primary Care Provider] - Follow up as needed Mode of Arrival: Ambulatory TRAVEL OUTSIDE OF THE [place] IN LAST 30 DAYS: No - HPI Notes: 10/06/20 14:37 30-year-old female to the emergency department with complaints of epigastric abdominal pain and nausea and vomiting that began this morning. She states it started about 6 AM. She states that she vomited up her coffee and then from then she has been having bilious vomiting. Denies any fevers or chills. She states she has a daughter at home who just had a GI bug. She denies any cough, diarrhea, body aches, sore throat, ear pain, nasal congestion, cough, any known COVID-19 exposures, loss of taste or smell. She states that she still has her gallbladder. She has had 2 C-sections in the past but no other abdominal surgeries. Denies any urinary complaints. She denies any flank pain. She does not drink alcohol. - Related Data Allergies/Adverse Reactions: codeine [Codeine] Allergy (Severe, Verified 08/21/20 14:10) Apnea ranitidine HCl [From Zantac] Allergy (Severe, Verified 08/21/20 14:10) sulfamethoxazole [From Septra] Allergy (Severe, Verified 08/21/20 14:10) trimethoprim [From Septra] Allergy (Severe, Verified 08/21/20 14:10) Past Medical History - General Information source: Patient - Social History Smoking Status: Never Smoker Frequency of alcohol use: None Family History: Reviewed & Not Pertinent Patient has homicidal ideation: No - Past Medical History Cardiac Medical History: Reports: Hx Hypertension Neurological Medical History: Reports: Hx Migraine Renal/ Medical History: Denies: Hx Peritoneal Dialysis Psychiatric Medical History: Reports: Hx Anxiety, Hx Depression Past Surgical History: Reports: Hx Section - x2, Hx Orthopedic Surgery - knee, ankle, foot - Immunizations Hx Diphtheria, Pertussis, Tetanus Vaccination: Yes Review of Systems - Review of Systems Constitutional: denies: Chills, Fever EENT: No symptoms reported Cardiovascular: denies: Chest pain, Palpitations, Heart racing, Orthopnea, Dyspnea, Syncope, Dizziness, Lightheaded Respiratory: denies: Cough, Short of breath Gastrointestinal: Abdominal pain, Nausea, Vomiting. denies: Diarrhea, Constipation Genitourinary: No symptoms reported. denies: Flank pain, Hematuria Musculoskeletal: No symptoms reported Skin: No symptoms reported Hematologic/Lymphatic: No symptoms reported Neurological/Psychological: No symptoms reported -: Yes All other systems reviewed and negative Physical Exam - Vital signs Vitals: Temp Pulse Resp BP Pulse Ox 98.1 F 99 18 144/86 H 97 10/06/20 11:04 10/06/20 11:04 10/06/20 11:04 10/06/20 11:04 10/06/20 11:04 Interpretation: Normal - General General appearance: Appears well, Alert In distress: None - HEENT Head: Normocephalic, Atraumatic Eyes: Normal Pupils: PERRL Neck: Normal, Supple. No: Lymphadenopathy - Respiratory Respiratory status: No respiratory distress Chest status: Nontender Breath sounds: Normal. No: Rales, Rhonchi, Wheezing Chest palpation: Normal - Cardiovascular Rhythm: Regular Heart sounds: Normal auscultation Murmur: No Notes: No pitting edema - Abdominal Inspection: Obese Distension: No distension Bowel sounds: Normal Tenderness: Tender - Tenderness to palpation to the right upper quadrant. Negative Alejandra sign. No tenderness to palpation over the right lower quadrant. There is no guarding or rebound. No: McBurney's point, Alejandra's sign, Guarding, Rebound Organomegaly: No organomegaly - Back Back: Normal, Nontender. 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 Noted US and lab work. Patient feeling much better after fluids, antiemetics, and toradol. Will discharge home and have her follow up outpatient with GI. Encouraged her to return if she is doing any worse. Patient agrees with the plan. - Vital Signs Vital signs: Temp Pulse Resp BP Pulse Ox 98.1 F 99 18 144/86 H 97 10/06/20 11:04 10/06/20 11:04 10/06/20 11:04 10/06/20 11:04 10/06/20 11:04 - Laboratory Result Diagrams: 10/06/20 12:05 10/06/20 12:05 Laboratory results interpreted by me: 10/06/20 10/06/20 12:05 12:05 Hgb 16.2 H Hct 47.4 H RDW 14.9 H ALT 38 H - Diagnostic Test Radiology reviewed: Image reviewed, Reports reviewed Discharge - Discharge Clinical Impression: Epigastric abdominal pain, Hepatic steatosis Nausea & vomiting Qualifiers: Vomiting type: unspecified Vomiting Intractability: non-intractable Qualified Code(s): R11.2 - Nausea with vomiting, unspecified Condition: Stable Disposition: HOME, SELF-CARE Instructions: Abdominal Pain ([facility]), Vomiting ([facility]) Additional Instructions: Take medicines as prescribed. [place] diet as tolerated. Push fluids. Follow-up with GI specialist. Return if worsening symptoms. Prescriptions: Dicyclomine HCl [Bentyl 20 mg Tablet] 20 mg PO QID PRN #20 tablet PRN Reason: Ondansetron [Zofran Odt 4 mg Tablet] 1 - 2 tab PO Q4H PRN #15 tab.rapdis PRN Reason: For Nausea/Vomiting Forms: Return to Work Referrals: SAMUEL MORENO NP [Primary Care Provider] - Follow up in 3-5 days KUMAR ROMERO MD [ACTIVE STAFF] - Follow up in 1 week (for GI follow up)
[2020-10-06 13:40] LABS: APPEARANCE,URINE CLEAR; BILIRUBIN,URINE NEGATIVE (NEGATIVE); COLOR,URINE STRAW; GLUCOSE, URINE NEGATIVE (NEGATIVE); KETONES,URINE NEGATIVE (NEGATIVE); LEUKOCYTE ESTERASE,URINE NEGATIVE (NEGATIVE); NITRITE,URINE NEGATIVE (NEGATIVE); PROTEIN,URINE NEGATIVE (NEGATIVE); URINE SPECIFIC GRAVITY 1.005; UROBILINOGEN,URINE NEGATIVE mg/dL (<2.0)
--- NOTE | 2020-10-06 14:15 | RADIOLOGY REPORT (SQ) ---
EXAM DESCRIPTION: U/S ABDOMEN LIMITED W/O DOP IMAGES COMPLETED DATE/TIME: 10/06/2020 1:57 pm REASON FOR STUDY: RUQ abd pain, eval gallbladder COMPARISON: CT abdomen dated 03/17/2017 TECHNIQUE: Dynamic and static grayscale images acquired of the abdomen and recorded on PACS. Additio nal selected color Doppler and spectral images recorded. LIMITATIONS: None. FINDINGS: PANCREAS: Pancreas is obscured by overlying bowel gas. LIVER: The liver is echogenic consistent with steatosis. The liver is measured at 19.2 cm in cranial caudal dimensions. No focal masses. LIVER VASCULATURE: Normal directional flow of the main portal vein and hepatic veins. GALLBLADDER: No stones. Normal wall thickness. No pericholecystic fluid. ULTRASOUND-DETECTED ABREU'S SIGN: Negative. INTRAHEPATIC DUCTS AND COMMON DUCT: CBD and intrahepatic ducts normal caliber. No filling defects. AORTA: No aneurysm. RIGHT KIDNEY: Normal size. Normal echogenicity. No solid or suspicious masses. No hydronephrosis. No calcifications. PERITONEAL AND RIGHT PLEURAL SPACE: No ascites or effusions. OTHER: No other significant findings. IMPRESSION: Hepatic steatosis with hepatomegaly. TECHNICAL DOCUMENTATION: JOB ID: [id number] 2010 [employer]- All Rights Reserved Reading location - IP/workstation name: [email or web address]
[2020-10-06 15:48] VITALS: BP 134/75
== END 2020-10-06 15:57 | disposition home or self-care (01) ==
LOC: ER 10:58
DX: K76.0 Fatty (change of) liver, not elsewhere classified (principal); R10.13 Epigastric pain; R11.2 Nausea with vomiting, unspecified; I10 Essential (primary) hypertension; Z88.6 Allergy status to analgesic agent; Z88.3 Allergy status to other anti-infective agents
CPT/HCPCS: 99285; 96361; 96374; 96375; 36415; 83690; 85025; 81025; 80053; 81001; 76705; J1885; J2405; J7030

== ENCOUNTER 2020-10-16 17:08 | Emergency (ER) | payer SELFPAY ==
[2020-10-16] MEDS ORDERED: LIDOCAINE 1% INJ-PF (10 MG/ML) 30 ML SDV INJ ONE (18:25)
[2020-10-16] MEDS ORDERED: IBUPROFEN 600 MG TABLET PO ONE (18:31)
--- NOTE | 2020-10-16 18:31 | ER Document Report ---
HPI - HPI Patient complains to provider of: hand lac Time Seen by Provider: 10/16/20 18:20 Pain Level: 3 Notes: 30-year-old female to the emergency department with complaints of a laceration to her left hand. Laceration occurred at approximately 4 PM. She states she was walking in her home carrying a glass in the left hand when she tripped and fell. States the glass broke and cut the pinky side of her hand. She states that she thought maybe she could cover it up and it would be fine but it continues to bleed. She states she is up-to-date on her tetanus shot. She is left-hand dominant. - ROS Systems Reviewed and Negative: Yes All other systems reviewed and negative - CONSTITUTIONAL Constitutional: DENIES: Fever, Chills - EENT EENT: DENIES: Sore Throat, Ear Pain, Congestion - NEURO Neurology: DENIES: Headache - CARDIOVASCULAR Cardiovascular: DENIES: Chest pain - RESPIRATORY Respiratory: REPORTS: Coughing. DENIES: Trouble Breathing - GASTROINTESTINAL Gastrointestinal: DENIES: Abdominal Pain, Nausea, Patient vomiting, Diarrhea - URINARY Urinary: DENIES: Dysuria - REPRODUCTIVE Reproductive: DENIES: : - MUSCULOSKELETAL Musculoskeletal: REPORTS: Extremity pain - Left hand pain - DERM Skin Color: Normal Skin Problems: Laceration - Left hand laceration Past Medical History - General Information source: Patient - Social History Smoking Status: Current Every Day Smoker Frequency of alcohol use: Occasional Drug Abuse: None Family History: Reviewed & Not Pertinent Patient has homicidal ideation: No - Past Medical History Cardiac Medical History: Reports: Hx Hypertension Neurological Medical History: Reports: Hx Migraine Renal/ Medical History: Denies: Hx Peritoneal Dialysis Psychiatric Medical History: Reports: Hx Anxiety, Hx Depression Past Surgical History: Reports: Hx Section - x2, Hx Orthopedic Surgery - knee, ankle, foot - Immunizations Hx Diphtheria, Pertussis, Tetanus Vaccination: Yes Vertical Provider Document - CONSTITUTIONAL Agree With Documented VS: Yes Exam Limitations: No Limitations General Appearance: WD/WN, No Apparent Distress - INFECTION CONTROL TRAVEL OUTSIDE OF THE [place] IN LAST 30 DAYS: No - HEENT HEENT: Atraumatic, Normocephalic, PERRLA - NECK Neck: Normal Inspection, Supple - RESPIRATORY Respiratory: Breath Sounds Normal, No Respiratory Distress. negative: Rales, Rhonchi, Wheezing - CARDIOVASCULAR Cardiovascular: Regular Rate, Regular Rhythm, No Murmur - GI/ABDOMEN Gastrointestinal: Abdomen Soft, Abdomen Non-Tender, No Organomegaly - BACK Back: Normal Inspection - MUSCULOSKELETAL/EXTREMETIES Notes: There is a laceration to the ulnar side of the hand. It does not appear to affect any tendons. Patient has full range of motion of all fingers of the left hand against resistance with 5 out of 5 strength in testing of both flexor tendons as well as the extensor tendon. The pinky finger has 5 out of 5 strength with abduction, adduction, and Opposition against resistance. Cap refill is less than 2 seconds in all fingers. Radial pulse is intact. Bleeding is controlled at the site of the laceration. No snuffbox tenderness. - NEURO Level of Consciousness: Awake, Alert, Appropriate Motor/Sensory: No Motor Deficit, No Sensory Deficit - DERM Integumentary: Warm, Dry, Laceration - See extremity for further discussion of hand laceration Course - Re-evaluation Re-evalutation: Impression: Left hand laceration. Patient tolerated repair well. 6 sutures were applied. Educated about suture removal and 7 to 10 days. Encouraged to keep the wound clean and dry. Return if any worsening symptoms such as increased pain, swelling, redness, fever. Patient agrees with the plan - Vital Signs Vital signs: Temp Pulse Resp BP Pulse Ox 99.1 F 109 H 16 140/79 H 96 10/16/20 17:17 10/16/20 17:17 10/16/20 17:17 10/16/20 17:17 10/16/20 17:17 - Laboratory Laboratory results interpreted by me: Hand X-Ray 10/16/20 18:25 IMPRESSION: NEGATIVE STUDY OF THE LEFT HAND. NO RADIOGRAPHIC EVIDENCE OF ACUTE INJURY. - Diagnostic Test Radiology reviewed: Image reviewed, Reports reviewed Procedures - Laceration/Wound Repair Left Hand Time completed: 19:01 Wound length (cm): 3.5 Wound's Depth, Shape: Superficial Laceration pre-procedure: Betadine prep applied, Sterile drapes applied, Shur- Clens applied Anesthetic type: 1% Lidocaine Volume Anesthetic (mLs): 3 Wound explored: Clean, No foreign body removed Irrigated w/ Saline (mLs): 50 Wound Debrided: Minimal Wound Repaired With: Sutures Suture Size/Type: 4:0, Nylon Number of Sutures: 6 Post-procedure wound care: Other - nonadhesive dressing Post-procedure NV exam normal: Yes Complications: No Discharge - Discharge Clinical Impression: Laceration of left hand Qualifiers: Encounter type: initial encounter Foreign body presence: without foreign body Qualified Code(s): S61.412A - Laceration without foreign body of left hand, initial encounter Condition: Stable Disposition: HOME, SELF-CARE Instructions: Hand Laceration ([facility]) Additional Instructions: Keep laceration clean. May clean daily with warm soapy water with Q-tips. Take antibiotics. Use Motrin for pain control. Keep the wound covered for the next 5 days and then may have it open to air at night. Suture removal in 7 to 10 days. Return if worsening pain, fevers, redness, swelling or any other concerns. Prescriptions: Ibuprofen [Motrin 600 mg Tablet] 600 mg PO Q8HP PRN #24 tablet PRN Reason: Cephalexin Monohydrate [Keflex 500 mg Capsule] 500 mg PO Q6H 7 Days #28 capsule Forms: Return to Work Referrals: SAMUEL MORENO NP [Primary Care Provider] - Follow up in 1 week (for suture removal)
--- NOTE | 2020-10-16 18:58 | RADIOLOGY REPORT (SQ) ---
EXAM DESCRIPTION: HAND LEFT 3 VIEWS IMAGES COMPLETED DATE/TIME: 10/16/2020 6:44 pm REASON FOR STUDY: left hand laceration, eval FB COMPARISON: None. EXAM PARAMETERS: NUMBER OF VIEWS: Three views. TECHNIQUE: AP, lateral and oblique radiographic images acquired of the left hand. LIMITATIONS: None. FINDINGS: MINERALIZATION: Normal. BONES: No acute fracture or dislocation. No worrisome bone lesions. JOINTS: No effusions. SOFT TISSUES: No soft tissue swelling. No foreign body. OTHER: No other significant finding. IMPRESSION: NEGATIVE STUDY OF THE LEFT HAND. NO RADIOGRAPHIC EVIDENCE OF ACUTE INJURY. TECHNICAL DOCUMENTATION: JOB ID: [id number] 2010 [employer]- All Rights Reserved Reading location - IP/workstation name: [email or web address]
[2020-10-16 19:47] VITALS: BP 119/77
== END 2020-10-16 19:50 | disposition home or self-care (01) ==
LOC: ER 17:08
DX: S61.412A Laceration without foreign body of left hand, initial encounter (principal); W19.XXXA Unspecified fall, initial encounter; W25.XXXA Contact with sharp glass, initial encounter; Y92.009 Unspecified place in unspecified non-institutional (private) residence as the place of occurrence of the external cause; F17.200 Nicotine dependence, unspecified, uncomplicated; I10 Essential (primary) hypertension
CPT/HCPCS: 12002; 99283; 73130; J3490